=== PATIENT | female | born 1985 | race Caucasian/White ===

== ENCOUNTER → 2019-12-24 20:34 | Observation (INO) ==
[2019-12-24 18:22] VITALS: BP 140/81
[2019-12-24 18:54] LABS: Basophils % 0.1 %; Eosinophils # 0.1 K/mcL (0.0-0.6); Eosinophils % 0.8 %; Hematocrit 36.1 % (35.3-44.9); Hemoglobin 12.3 g/dL (11.5-15.4); Immature Granulocytes % 0.5 % (0-4); Lymphocytes # 2.5 K/mcL (0.6-4.6); Lymphocytes % 24.5 %; Mean Corpuscular HGB Conc 34.1 g/dL (31.6-35.5); Mean Corpuscular Hemoglobin 28.9 pg (28.0-33.3); Mean Corpuscular Volume 84.7 fL (83.0-100.0); Mean Platelet Volume 10.3 fL (9.4-12.4); Monocytes # 0.6 K/mcL (0.0-1.3); Platelet Count 223 K/mcL (140-400); Red Blood Count 4.26 M/mcL (3.82-4.97); Red Cell Distribution Width 13.9 % (11.5-14.5); Segmented Neutrophils % 68.1 %; White Blood Count 10.2 K/mcL (4.3-11.1)
[2019-12-24 19:02] LABS: Protein/Creatinine Ratio,Urine 0.29 mg/mg (0.00-0.20)
[2019-12-24 19:14] LABS: Alanine Aminotransferase 9 Units/L (7-52); Aspartate Amino Transferase 15 Units/L (13-39); BUN/Creatinine Ratio 12 (6-26); Blood Urea Nitrogen 5 mg/dL (6-20); Lactate Dehydrogenase 154 Units/L (140-271); Uric Acid 5.3 mg/dL (2.3-7.6); eGFR For African Americans > 60 (> 60); eGFR For Non-African Americans > 60 (> 60)
[~2019-12-24 20:34] MED LIST: Betamethasone Acet/SodPhos 30 MG/5 ML VIAL IM SCH
== END | disposition home or self-care (01) ==
LOC: 1NENULAB
PROVIDERS: ADMIT Obstetrics & Gynecology; ATTEND Obstetrics & Gynecology

== ENCOUNTER 2019-12-26 00:55 | Inpatient (IN) ==
[2019-12-25 21:40] LABS: Creatinine,Urine 23 mg/dL
[2019-12-25 21:45] LABS: Basophils % 0.2 %; Eosinophils % 0.2 %; Hematocrit 35.1 % (35.3-44.9); Hemoglobin 11.7 g/dL (11.5-15.4); Lymphocytes # 2.8 K/mcL (0.6-4.6); Lymphocytes % 22.4 %; Mean Corpuscular HGB Conc 33.3 g/dL (31.6-35.5); Mean Platelet Volume 10.1 fL (9.4-12.4); Monocytes # 0.7 K/mcL (0.0-1.3); Monocytes % 5.6 %; Neutrophils # 8.9 K/mcL (1.6-8.9); Platelet Count 217 K/mcL (140-400); Red Blood Count 4.18 M/mcL (3.82-4.97); Red Cell Distribution Width 13.7 % (11.5-14.5); Segmented Neutrophils % 70.6 %; White Blood Count 12.6 K/mcL (4.3-11.1)
[2019-12-25 21:50] LABS: Alanine Aminotransferase 8 Units/L (7-52); Aspartate Amino Transferase 11 Units/L (13-39); BUN/Creatinine Ratio 12 (6-26); Blood Urea Nitrogen 5 mg/dL (6-20); Lactate Dehydrogenase 138 Units/L (140-271); eGFR For African Americans > 60 (> 60); eGFR For Non-African Americans > 60 (> 60)
[2019-12-25] MEDS: Ringers Solution, Lactated 1,000 ML IVC SCH (23:56)
[2019-12-26] MEDS: miSOPROStoL 25 MCG TABLET PO PRN ×2 (00:31→04:49)
[~2019-12-26 00:55] MED LIST changes: +*HR* FentaNYL (PF) 100 MCG/2 ML VIAL IVP PRN; +Famotidine 20 MG/2 ML VIAL IVP PRN; +Lidocaine 1% 20 ML MDV INFILT PRN; +Metoclopramide 10 MG/2 ML VIAL IVP PRN; +Naloxone 0.4 MG/ML INJ IVP PRN; +Ondansetron 4 MG/2 ML VIAL IVP PRN; +Penicillin G Potassium 5,000,000 UNIT in 0.9 % Sodium Chloride Mini Bag 100 ML IVPB ONE
[2019-12-26 04:37] LABS: Amphetamine Screen,Urine Negative ng/mL (Cutoff=1000); Barbiturate Screen,Urine Negative ng/mL (Cutoff=200); Benzodiazepines Screen,Urine Negative ng/mL (Cutoff=200); Cannabinoid Screen,Urine Negative ng/mL (Cutoff = 50); Cocaine Screen,Urine Negative ng/mL (Cutoff= 300); Opiate Screen,Urine Negative ng/mL (Cutoff=300); Phencyclidine Screen,Urine Negative ng/mL (Cutoff=25)
[2019-12-26] MEDS: Penicillin G Potassium 2,500,000 UNIT/105 ML MLS IVPB SCH ×5 (04:46→22:37)
[2019-12-26] MEDS ORDERED: Acetaminophen 325 MG TABLET PO ONE (07:45)
[2019-12-26] MEDS ORDERED: miSOPROStoL 25 MCG TABLET VG ONE (09:02)
[2019-12-26] MEDS: Oxytocin 20 units/ LR 1000 mL 20 UNIT/1,000 ML BAG IVC SCH ×2 (13:54→22:35)
[2019-12-27] MEDS: Penicillin G Potassium 2,500,000 UNIT/105 ML MLS IVPB SCH (03:15)
[2019-12-27] MEDS: Ringers Solution, Lactated 1,000 ML IVC SCH (03:15)
[2019-12-27] MEDS ORDERED: 0.9 % Sodium Chloride 1,000 ML ONE (06:09)
[2019-12-27] MEDS ORDERED: EPHEDrine 50 MG/ML VIAL IVP PRN (06:34)
[2019-12-27] MEDS ORDERED: Ropivacaine/PF 0.2% 20 ML VIAL EP ONE (06:34)
[2019-12-27] MEDS ORDERED: Ondansetron 4 MG/2 ML VIAL IVP PRN ×2 (06:34→10:24)
[2019-12-27] MEDS ORDERED: Naloxone 0.4 MG/ML INJ IVP PRN ×2 (06:34→10:24)
[2019-12-27] MEDS ORDERED: Epidural Premix (fent/bupiv) 110 ML EP ONE (06:37)
[2019-12-27] MEDS ORDERED: Epidural Premix (fent/bupiv) 110 ML EP SCH (06:45)
[2019-12-27] MEDS ORDERED: Metoclopramide 10 MG/2 ML VIAL IVP ONE (07:21)
[2019-12-27] MEDS ORDERED: CeFAZolin Syr 3,000MG/30 ML 3,000 MG/30 ML SYRINGE IVPB ONE (07:21)
[2019-12-27] MEDS ORDERED: Famotidine 20 MG/2 ML VIAL IVP ONE (07:21)
[2019-12-27] MEDS ORDERED: Azithromycin 500 MG in 0.9 % Sodium Chloride 250 ML IVPB ONE (07:22)
[2019-12-27] MEDS ORDERED: *HR* Propofol 200 MG/20 ML VIAL IVP ONE (07:28)
[2019-12-27] MEDS ORDERED: *HR* Midazolam HCl 2 MG/2 ML VIAL ONE (07:36)
[2019-12-27] MEDS ORDERED: *HR* Magnesium Sulfate 1 GM/2 ML VIAL ONE ×2 (07:37)
[2019-12-27] MEDS ORDERED: Ketorolac 30 MG/ML VIAL ONE (07:39)
[2019-12-27] MEDS ORDERED: Acetaminophen IV 1,000 MG/100 ML INFUS..BTL ONE (07:39)
[2019-12-27] MEDS ORDERED: *HR* FentaNYL (PF) 100 MCG/2 ML VIAL ONE (07:42)
[2019-12-27] MEDS ORDERED: *HR* Morphine Sulfate/PF 10 MG/10 ML AMPUL ONE (07:43)
[2019-12-27] MEDS ORDERED: *HR* Phenylephrine 10 MG/ML VIAL ONE (07:47)
[2019-12-27] MEDS ORDERED: Lidocaine/EPI 1:200k 2% PF 20 ML VIAL ONE (07:48)
[2019-12-27] MEDS ORDERED: Dexamethasone 4 MG/ML VIAL ONE (07:58)
[2019-12-27] MEDS ORDERED: Ondansetron 4 MG/2 ML VIAL ONE (07:58)
[2019-12-27] MEDS ORDERED: *HR* Rocuronium Bromide 50 MG/5 ML VIAL ONE (08:04)
[2019-12-27] MEDS ORDERED: *HR* HYDROmorphone (PF) 1 MG/ML SYRINGE IVP PRN (08:06)
[2019-12-27 08:15] LABS: Adenovirus Not Detected (Not Detect); Bordetella Pertussis Not Detected (Not Detect); Chlamydophila pneumoniae Not Detected (Not Detect); Coronavirus 229E Not Detected (Not Detect); Coronavirus HKU1 Not Detected (Not Detect); Coronavirus NL63 Not Detected (Not Detect); Coronavirus OC43 Not Detected (Not Detect); Human Metapneumovirus Not Detected (Not Detect); Human Rhinovirus/Enterovirus Not Detected (Not Detect); Influenza A Subtype 2009 H1 Not Detected (Not Detect); Influenza B Not Detected (Not Detect); Mycoplasma pneumoniae Not Detected (Not Detect); Parainfluenza Virus 1 Not Detected (Not Detect); Parainfluenza Virus 2 Not Detected (Not Detect); Parainfluenza Virus 3 Not Detected (Not Detect); Parainfluenza Virus 4 Not Detected (Not Detect); Respiratory Syncytial Virus Not Detected (Not Detect); SARS-CoV-2 Not Detected (Not Detect)
[2019-12-27] MEDS ORDERED: Calcium Gluconate 1,000 MG/10 ML VIAL IVP PRN (10:24)
[2019-12-27] MEDS ORDERED: Oxytocin 20 units/ LR 1000 mL 20 UNIT/1,000 ML BAG IVC SCH (10:24)
[2019-12-27] MEDS ORDERED: Magnesium Sulf 20 gm/SW 500mL 20 GM/500 ML IV.SOLN IVC SCH (10:24)
[2019-12-27] MEDS ORDERED: *HR* OxyCODONE Immed Rel 5 MG TABLET PO PRN (10:24)
[2019-12-27] MEDS ORDERED: Sennosides 8.6 MG TABLET PO PRN (10:24)
[2019-12-27] MEDS ORDERED: Metoclopramide 10 MG/2 ML VIAL IVP PRN (10:24)
[2019-12-27] MEDS: Ibuprofen 600 MG TABLET PO PRN (16:35)
[2019-12-27] MEDS: Acetaminophen 325 MG TABLET PO PRN (21:35)
[2019-12-28] MEDS: Ibuprofen 600 MG TABLET PO PRN ×3 (01:03→20:39)
[2019-12-28] MEDS: Acetaminophen 325 MG TABLET PO PRN (08:07)
[2019-12-28] MEDS: Prenatal Vit/FA 1 EACH TABLET PO SCH (08:07)
[2019-12-28] MEDS: Simethicone 80 MG TAB.CHEW PO PRN ×2 (08:07→20:40)
[2019-12-28 13:36] LABS: Basophils % 0.1 %; Eosinophils % 0.3 %; Immature Granulocytes % 0.5 % (0-4); Lymphocytes # 3.3 K/mcL (0.6-4.6); Lymphocytes % 32.6 %; Mean Corpuscular HGB Conc 32.6 g/dL (31.6-35.5); Mean Corpuscular Hemoglobin 28.9 pg (28.0-33.3); Mean Corpuscular Volume 88.5 fL (83.0-100.0); Mean Platelet Volume 9.5 fL (9.4-12.4); Monocytes # 0.8 K/mcL (0.0-1.3); Monocytes % 8.1 %; Neutrophils # 5.9 K/mcL (1.6-8.9); Platelet Count 194 K/mcL (140-400); Red Blood Count 3.05 M/mcL (3.82-4.97); Red Cell Distribution Width 14.2 % (11.5-14.5); Segmented Neutrophils % 58.4 %; White Blood Count 10.1 K/mcL (4.3-11.1)
[2019-12-28 13:38] LABS: Hemoglobin 8.8 g/dL (11.5-15.4)
[2019-12-28 13:55] LABS: Alanine Aminotransferase 7 Units/L (7-52); Aspartate Amino Transferase 17 Units/L (13-39); BUN/Creatinine Ratio 12 (6-26); Blood Urea Nitrogen 6 mg/dL (6-20); Lactate Dehydrogenase 167 Units/L (140-271); eGFR For African Americans > 60 (> 60); eGFR For Non-African Americans > 60 (> 60)
[2019-12-29] MEDS: Ibuprofen 600 MG TABLET PO PRN ×3 (02:56→19:59)
[2019-12-29] MEDS: Acetaminophen 325 MG TABLET PO PRN ×2 (02:56→18:59)
[2019-12-29] MEDS: Prenatal Vit/FA 1 EACH TABLET PO SCH (08:29)
[2019-12-29] MEDS ORDERED: MOM Conc 10 ML UD.LIQ PO ONE (09:49)
[2019-12-29] MEDS ORDERED: Bisacodyl 10 MG RECTAL SUPPOSITORY RC PRN (09:57)
[2019-12-29 14:27] LABS: Alanine Aminotransferase 8 Units/L (7-52); Aspartate Amino Transferase 14 Units/L (13-39); BUN/Creatinine Ratio 15 (6-26); Blood Urea Nitrogen 7 mg/dL (6-20); Lactate Dehydrogenase 151 Units/L (140-271); Uric Acid 5.5 mg/dL (2.3-7.6); eGFR For African Americans > 60 (> 60); eGFR For Non-African Americans > 60 (> 60)
[2019-12-30] MEDS: Acetaminophen 325 MG TABLET PO PRN (01:18)
[2019-12-30] MEDS: Ibuprofen 600 MG TABLET PO PRN ×2 (02:49→08:12)
[2019-12-30 07:51] VITALS: BP 121/83
[2019-12-30] MEDS: Prenatal Vit/FA 1 EACH TABLET PO SCH (08:12)
== END 2019-12-30 12:45 | disposition home or self-care (01) | DRG 786 ==
LOC: 1NENULAB → 1NENUOBS 12-27 11:04
PROVIDERS: ADMIT Obstetrics & Gynecology; ATTEND Obstetrics & Gynecology